=== PATIENT | female | born 1980 | race Caucasian/White ===

== ENCOUNTER 2023-05-17 21:49 | Emergency (ER) | payer OTHER, SELFPAY ==
[2023-05-17 21:51] VITALS: BP 168/106; PULSE 115; RESP 18; TEMP 36.8; O2SAT 99; BMI 33.3
--- NOTE | 2023-05-17 22:20 | HMH.EDGENADL ---
Discharge Plan Disposition Patient Disposition: Home, Self-Care Chief Complaint: Skin/Abscess/Foreign Body Referrals Follow up/Referrals: Rob Cedeno II, DO [Primary Care Provider] - See instructions Clinical Impressions Clinical Impression: Acute foreign body of vagina Instructions Patient Instructions: DI for Skin Abscess Discharge ED Provider: [facility] [place] [facility] HPI General Chief complaint: Skin/Abscess/Foreign Body Stated complaint: condom stuck in vagina Time Seen by Provider: 05/17/23 22:04 Mode of Arrival: Ambulatory Source of Information: Spouse Limitations: No Limitations Description of Symptoms (Recalled from ER Triage Doc. by RN): pt states was having intercourse and condom broke and hasn't been located. pt is concerned that condom is located in vagina. History of Present Illness HPI narrative: 42-year-old female history of thrombophilia presenting with concern for foreign body in vagina. Patient states that she was having intercourse, condom broke. No concern for STDs, but was unable to find a condom afterward. Concerned in vaginal vault. Tried to retrieve it, had no luck. Related Data Allergies Allergy/AdvReac Type Severity Reaction Status Date / Time No Known Allergies Allergy Verified 05/17/23 22:21 [facility] Disclaimer: The information contained in this section may have been updated after the patient was seen, as this information can be updated by other users. Social History Smoking Status: Never smoker alcohol intake: never current occupational status: employed Travel in the last 8 weeks: None ROS Obtained: Yes All systems reviewed & no additional complaints except as documented Physical Exam General General appearance: alert and in no apparent distress Head Head exam: atraumatic and normocephalic Eye Eye exam: Present normal appearance, PERRL and EOMI ENT ENT exam: Present mucous membranes moist Neck Neck exam: Present normal inspection, full ROM and trachea midline Respiratory Respiratory exam: Absent respiratory distress, wheezes, stridor, accessory muscle use or prolonged expiratory phase Cardiovascular Cardiovascular exam: Present normal rhythm Abdominal Exam Abdominal exam: Present soft; Absent distention, tenderness, guarding, rebound or rigidity Extremities Exam Extremities exam: Absent edema Neurological Exam Neurological exam: Present alert, oriented X3, CN II-XII intact and normal gait; Absent motor sensory deficit Skin Skin exam: Present warm and dry; Absent diaphoresis or erythema Medical Decision Making Medical Records Medical records reviewed: Yes I reviewed the patient's medical records. Pipo Inquiry Pt receiving controlled substance: No Pipo was queried for this patient: No Vital Signs: 05/17/23 21:51 Temperature 98.2 F Temperature Source Oral Pulse Rate [Right] 115 H Respiratory Rate 18 Blood Pressure [Right Arm] 168/106 H Blood Pressure Mean [Right Arm] 126 02 Sat by Pulse Oximetry 99 Orders (Tests/Meds): ED MEDICATIONS Discontinued Medications Generic Name Dose Route Start Last Admin Trade Name Tran PRN Reason Stop Dose Admin Levonorgestrel 1.5 mg 05/17/23 22:19 05/17/23 22:24 Levonorgestrel 1.5mg Tabs/Plan B One-Step PO 05/17/23 22:20 1.5 mg ONCE ONE Administration Medical Decision Narrative: 42-year-old female history of thrombophilia presenting with concern for foreign body in vagina. Patient states that she was having intercourse, condom broke. No concern for STDs, but was unable to find a condom afterward. Concerned in vaginal vault. Tried to retrieve it, had no luck. History was obtained via conversation with patient. On arrival, patient hemodynamically stable, alert, oriented x4, appropriate, GCS 15, moving all extremities spontaneously, pupils equal and reactive to light. Full physical exam performed and significant for condom in posterior fourchette. This was removed. Patient was given levonorgestrel 1.5g for symptomatic management and correction of underlying abnormalities. Speculum exam demonstrated condom in posterior fourchette. Removed without issue. Because patient at baseline without signs or symptoms of clinical decompensation, deemed appropriate for discharge. Results were relayed to patient who voiced understanding and were agreeable to outpatient management and follow up. At the time of discharge the patient was hemodynamically stable, tolerating PO, and mobilizing appropriately. Procedures Foreign Body Removal Site: vagina Description of foreign body: other (condom) Technique: manual removal and removal with forceps Confirmed by:: direct visualization Complications: none Post-procedure exam: awake, alert Critical Care Critical Care Time Critical Care Time: No
[2023-05-17] MEDS: [UNRECOGNIZED DRUG - OTHER] PO (22:24)
[2023-05-17] MEDS: LEVONORGESTREL PO (22:24)
--- NOTE | 2023-05-17 22:44 | PC.NURSE ---
Assited MD with pelvic exam, retrieved condom from vaginal tract without difficulty. Pt tolerated well
[2023-05-17 22:51] VITALS: BP 155/11; PULSE 108; RESP 16; TEMP 36.9; O2SAT 99
== END 2023-05-17 22:52 | disposition home or self-care (01) ==
PROVIDERS: Emergency Provider Emergency Medicine; PCP Student in an Organized Health Care Education/Training Program
DX: T19.2XXA Foreign body in vulva and vagina, initial encounter (principal)
CPT/HCPCS: 99283